=== PATIENT | male | born 1940 | race Caucasian/White ===

== ENCOUNTER 2017-10-18 22:26 | Emergency (ER) | payer OTHER, MEDICAID ==
[2017-10-18 22:36] VITALS: BP 179/81; BMI 26.8
[2017-10-18] MEDS ORDERED: TORADOL 60 MG VIAL IM ONE (23:34)
[2017-10-18] MEDS ORDERED: PHENERGAN INJ 25 MG IM ONE (23:34)
[2017-10-18] MEDS ORDERED: PHENERGAN INJ 25 MG ONE (23:40)
[2017-10-18] MEDS ORDERED: TORADOL 60 MG VIAL ONE (23:40)
--- NOTE | 2017-10-18 23:40 | DR.GENAD ---
HPI - PCP Primary Care Physician: JUSTIN - Complaint/Symptoms Chief Complaint Doctors Comments: Patient is complaining of right CVA pain for the past 3-4 hours getting progressively worst. States the onset of continuous pain in the right side that is steady and will not go away. states he has taken a Locet Plus 10mf 1 1/2 tablets at home without improvement. He denies fever, chills, cold or cough. States he has not been able to urinate since the pain started. States he has Tourettes Syn and cannot urinate on demand like other people. states he is a patient of Dr. Mcdonnell and he took an aspiring at home with his blood pressure and cholesterol pill. States his last bowel movement was today. Chief Complaint:: RT LOWER BACK PAIN Self Treatment fo Chief Complaint: LORCET 15 AND 2 GASX TABLETS AROUND 2129 - Nurses notes reviewed Nurses Notes Review: Yes - Source History Provided: Patient, Family Member - Mode of Arrival Mode of Arrival: Ambulatory - Timing Onset of Chief Complaint: 10/18/17 Came on: Gradually - Duration Duration: Constant How lon Duration: Hours - Location Location: right CVA and back pain - Severity Severity: Severe - Modifying Factors Worsens:: nothing Improves:: nothing PMH - PMH Past Medical History: Yes Past Medical History: Anxiety, GERD, Hypertension, Hyperthyroidism Past Medical History Comment: SENTS Past Surgical History: Yes Surgical History: Angioplasty/Stents Past Surgical History Comment: HERNIA REPAIR - Family History History of Family Medical Conditions: No Family Medical History: Diabetes Mellitus, Cancer, Hypertension - Social History Does patient currently use any type of tobacco product: No Have you used tobacco products in the last 12 months: No Type of Tobacco Use: None Alcohol Use: None Do you use any recreational Drugs:: No Lives With: Family Lives Where: Home - infectious screening In the last 2 months have you had wt loss of >10#?: NO Have you had fever, night sweats or hemotysis?: No Have you traveled outside the country in the last 6 months?: No Isolation: Standard ROS - Review of Systems Constitutional: No Symptoms Reported Eyes: No Symptoms Reported. negative: See HPI, Eye Pain, Blurred Vision, Tearing, Discharge, Photophobia, Diplopia, Other ENTM: No Symptoms Reported Respiratoy: No Symptoms Reported. negative: See HPI, Productive Cough, Non- Productive Cough, Moist Cough, Dry Cough, Hacking Cough, Barking Cough, Brassy Cough, Orthopnea, Short of Breath, Stridor, Wheezing, Hemoptysis, Other Cardiovascular: No Symptoms Reported Gastrointestinal/Abdominal: No Symptoms Reported, Abdominal Pain, Nausea Genitourinary: No Symptoms Reported. negative: See HPI, Discharge, Dysuria, Frequency, Hematuria, Pain, Bleeding, Other Neurological: No Symptoms Reported Musculoskeletal: No Symptoms Reported, Back Pain, Right Integumentary: No Symptoms Reported Hematologic/Lymphatic: No Symptoms Reported. negative: See HPI, Anemia, Blood Clots, Easy Bleeding, Easy Bruising, Swollen Glands, Lymphadenopathy, Other Endocrine: No Symptoms Reported Psychiatric: No Symptoms Reported. negative: See HPI, Anxiety, Depression, Hallucinations, Excessive crying, Suicidal, Other PE - Vital Signs Vitals: Temperature 98.5 F Pulse Rate 73 Respiratory Rate 18 Blood Pressure [Left Arm] 122/66 Blood Pressure [Right Arm] 123/69 Blood Pressure 179/81 O2 Sat by Pulse Oximetry 96 - General Limitations: No Limitations General Appearance: Alert, In Distress (moderate) - Head Head Exam: Normal Inspection, Atraumatic, Normocephalic - Eyes Eye exam: Normal Appearance, PERRL, EOMI. negative: Scleral Icterus, Conjunctival Injection, Nystagmus, Miosis, Mydrasis, Periorbital Swelling, Periorbital Tenderness, Other - ENT ENT Exam: Normal Exam, Normal Oropharynx, Normal External Ear Exam, Mucous Membranes Moist, TM's Normal Bilaterally External Ear Exam: Normal External Inspection TM/Canal Exam: Bilateral Normal Nose Exam: Normal Nose Exam Mouth Exam: Normal Inspection Throat Exam: Normal Inspection - Neck Neck Exam: Normal Inspection, Full ROM, Trachea Midline - Chest Chest Inspection: Normal Inspection, Symmetric Chest Wall Rise - Respiratory Respiratory Exam: Normal Lung Sounds Bilat Respiratory Exam: Bilateral Clear to Auscultation - Cardiovascular Cardiovascular Exam: Regular Rate, Normal Rhythm, Normal Heart Sounds - Abdominal Exam Abdominal Exam: Normal Inspection, Normal Bowel Sounds, Soft, Tenderness (right CVA), Guarding, Hyperactive Bowel Sounds Abdominal Tenderness: RUQ, Moderate - Extremities Extremities Exam: Normal Inspection, Full ROM, Normal Capillary Refill. negative: Tenderness, Edema, Joint Swelling, Calf Tenderness, Other - Back Back Exam: Normal Inspection, Full ROM. negative: Tenderness, (R) CVA Tenderness, (L) CVA Tenderness, Muscle Spasm, Paraspinal Tenderness, Vertebral Tenderness, Rashes, (R) Sciatic Notch Tenderness, (L) Sciatic Notch Tendern, (R ) Straight Leg Raise, (L) Straight Leg Raise, Other - Neurologic Neurological Exam: Alert, Oriented X3, CN II-XII Intact, Normal Gait, Reflexes Normal - Psychiatric Psychiatric Exam: Normal Affect, Normal Mood. negative: Depressed, Agitated, Anxious, Flat Affect, Manic, Homicidal Ideation, Suicidal Ideation, Other - Skin Skin Exam: Warm, Dry, Intact, Normal Color ROR - Labs Reviewed Laboratory Results Reviewed?: Yes (all labs and x-ray results reviewed and discussed with and patient.) Result Diagrams: 10/18/17 23:47 10/18/17 23:47 Laboratory: WBC 11.1 X10^3/uL (3.6-10.0) H 10/18/17 23:47 RBC 5.21 X10^6/uL (4.7-6.0) 10/18/17 23:47 Hgb 15.0 g/dL (13.5-18.0) 10/18/17 23:47 Hct 45.1 % (42.0-54.0) 10/18/17 23:47 MCV 86.5 fL (80.0-100.0) 10/18/17 23:47 MCH 28.8 pg (27.0-34.0) 10/18/17 23:47 MCHC 33.3 g/dL (33.0-35.0) 10/18/17 23:47 RDW 13.6 % (11.6-16.5) 10/18/17 23:47 Plt Count 161 X10^3/uL (150.0-450.0) 10/18/17 23:47 MPV 9.5 fL (7.4-11.0) 10/18/17 23:47 Neut % (Auto) 75.3 % (42.0-75.0) H 10/18/17 23:47 Lymph % (Auto) 12.9 % (21.0-51.0) L 10/18/17 23:47 [place] % (Auto) 7.9 % (0.0-13.0) 10/18/17 23:47 Eos % (Auto) 3.3 % (0.9-2.9) H 10/18/17 23:47 Baso % (Auto) 0.6 % (0.2-1.0) 10/18/17 23:47 Neut # (Auto) 8.4 x10^3/uL (2.2-4.8) H 10/18/17 23:47 Lymph # (Auto) 1.4 X10^3/uL (1.3-2.9) 10/18/17 23:47 [place] # (Auto) 0.9 x10^3/uL (0.3-0.8) H 10/18/17 23:47 Eos # (Auto) 0.4 x10^3/uL (0.0-0.2) H 10/18/17 23:47 Baso # (Auto) 0.1 X10^3/uL (0.0-0.1) 10/18/17 23:47 Absolute Nucleated RBC 0.1 /100WBC 10/18/17 23:47 Sodium 141 mmol/L (136-145) 10/18/17 23:47 Corrected Sodium 142 mmol/L (136-145) 10/18/17 23:47 Potassium 4.2 mmol/L (3.5-5.1) 10/18/17 23:47 Chloride 103 mmol/L (98-107) 10/18/17 23:47 Carbon Dioxide 31.0 mmol/L (21-32) 10/18/17 23:47 BUN 17 mg/dL (7-18) 10/18/17 23:47 Creatinine 1.13 mg/dL (0.70-1.30) 10/18/17 23:47 Est GFR (MDRD) Af Amer > 60 (>60) 10/18/17 23:47 Est GFR (MDRD) Non-Af > 60 (>60) 10/18/17 23:47 Glucose 139 mg/dL (65-99) H 10/18/17 23:47 Calcium 8.6 mg/dL (8.5-10.1) 10/18/17 23:47 Corrected Calcium TNP 10/18/17 23:47 Total Bilirubin 0.60 mg/dL (0.2-1.0) 10/18/17 23:47 AST 22 Units/L (15-37) 10/18/17 23:47 ALT 24 Units/L (12-78) 10/18/17 23:47 Alkaline Phosphatase 92 Units/L (46-116) 10/18/17 23:47 Total Protein 8.1 g/dL (6.4-8.2) 10/18/17 23:47 Albumin 3.8 g/dL (3.4-5.0) 10/18/17 23:47 Globulin 4.3 g/dL (2.5-4.5) 10/18/17 23:47 Albumin/Globulin Ratio 0.9 Ratio (1.1-2.1) L 10/18/17 23:47 Amylase 60 Units/L (25-115) 10/18/17 23:47 Lipase 187 Units/L (73-393) 10/18/17 23:47 - XRAY XRAY Interpreted by: Radiologist (CT abdomen and pelvis: Moderate right sided hydroureteronephrosis secondary to a 4mm stone distal right ureter. diffuse colonic diverticulosis. larger hiatalhernia) - Diagnosis Discharge Problem: Right distal ureteral calculus, Hydroureteronephrosis, Hyperglycemia, Colon, diverticulosis, Left inguinal hernia - Discharge Plan Disposition: HOME, SELF-CARE Condition: Stable Prescriptions: Ciprofloxacin HCl [CIPRO 500 MG TAB *] 500 mg PO Q12H #20 tab Tamsulosin HCl [Flomax] 0.4 mg PO DAILY #14 cap - Follow ups/Referrals Follow ups/Referrals: TIKI MCDONNELL [Primary Care Provider] - 3 days - Instructions Instructions: Inguinal Hernia, Adult, [id number], Renal Colic, [id number], Hyperglycemia, [id number], Diverticulosis
[2017-10-18 23:53] LABS: BASOPHILS # (AUTO) 0.1 X10^3/uL (0.0-0.1); BASOPHILS % (AUTO) 0.6 % (0.2-1.0); EOSINOPHILS # (AUTO) 0.4 x10^3/uL (0.0-0.2); EOSINOPHILS % (AUTO) 3.3 % (0.9-2.9); HEMATOCRIT 45.1 % (42.0-54.0); LYMPHOCYTES # (AUTO) 1.4 X10^3/uL (1.3-2.9); LYMPHOCYTES % (AUTO) 12.9 % (21.0-51.0); MEAN CORPUSCULAR HEMOGLOBIN 28.8 pg (27.0-34.0); MEAN CORPUSCULAR HGB CONC 33.3 g/dL (33.0-35.0); MEAN CORPUSCULAR VOLUME 86.5 fL (80.0-100.0); MEAN PLATELET VOLUME 9.5 fL (7.4-11.0); MONOCYTES # (AUTO) 0.9 x10^3/uL (0.3-0.8); MONOCYTES % (AUTO) 7.9 % (0.0-13.0); NEUTROPHILS # (AUTO) 8.4 x10^3/uL (2.2-4.8); NEUTROPHILS % (AUTO) 75.3 % (42.0-75.0); PLATELET COUNT 161 X10^3/uL (150.0-450.0); RED BLOOD COUNT 5.21 X10^6/uL (4.7-6.0); RED CELL DISTRIBUTION WIDTH 13.6 % (11.6-16.5); WHITE BLOOD COUNT 11.1 X10^3/uL (3.6-10.0)
[2017-10-19 00:21] LABS: ALANINE AMINOTRANSFERASE 24 Units/L (12-78); ALBUMIN 3.8 g/dL (3.4-5.0); ALKALINE PHOSPHATASE 92 Units/L (46-116); AMYLASE 60 Units/L (25-115); ASPARTATE AMINO TRANSFERASE 22 Units/L (15-37); BLOOD UREA NITROGEN 17 mg/dL (7-18); CALCIUM 8.6 mg/dL (8.5-10.1); CHLORIDE 103 mmol/L (98-107); COR NA(FOR HYPERGLY) 142 mmol/L (136-145); CREATININE 1.13 mg/dL (0.70-1.30); LIPASE 187 Units/L (73-393); SODIUM 141 mmol/L (136-145); TOTAL PROTEIN 8.1 g/dL (6.4-8.2); eGFR BLACK RACES > 60 (>60); eGFR NON BLACK RACES > 60 (>60)
--- NOTE | 2017-10-19 00:30 | CT ---
CT abdomen and pelvis without contrast Indication: Sudden onset back pain without trauma Technique: Helical CT images of the abdomen and pelvis were obtained without IV contrast. Reformatted images in the coronal and sagittal planes were also generated for review. Comparison: None Findings: Imaged lung bases demonstrate a large sliding hiatal hernia, only partially visualized but consisting of the majority of the stomach. There is mild associated compressive atelectasis of the ri ght lower lobe. The left lung base is clear. No aggressive osseous lesions are identified. Within the limits of a noncontrast exam, the unenhanced liver, gallbladder, spleen, pancreas, adrenal s and left kidney/ureter are normal. There is moderate right-sided hydroureteronephrosis, secondary t o a 4 mm stone within the distal right ureter. There is moderate right perinephric stranding as well as small fluid about the right kidney. No additional radiopaque urinary tract stones are identified a nd there is no left-sided hydroureteronephrosis. There is diffuse colonic diverticulosis without CT evidence for acute diverticulitis. There is no bow el inflammation or obstruction. The appendix is normal. The aortoiliac system is moderately calcified without aneurysm. The urinary bladder is normal without stones. The prostate is normal in size and c entrally calcified. Small left greater than right fat containing inguinal hernias noted. No free air, significant free flowing ascites or bulky lymphadenopathy identified. Impression: Moderate right-sided hydroureteronephrosis secondary to a 4 mm stone within distal right ureter. Large hiatal hernia, diffuse colonic diverticulosis and additional incidental findings, as above. Reported By:
[2017-10-19] MEDS ORDERED: FLOMAX PO STA (00:50)
[2017-10-19] MEDS ORDERED: LEVAQUIN TAB 500 MG PO STA (00:50)
[2017-10-19] MEDS ORDERED: LEVAQUIN TAB 500 MG ONE (00:54)
== END 2017-10-19 01:07 | disposition home or self-care (01) ==
LOC: ER 22:26
DX: N20.1 Calculus of ureter (principal); N13.30 Unspecified hydronephrosis; R73.9 Hyperglycemia, unspecified; K57.30 Diverticulosis of large intestine without perforation or abscess without bleeding; K40.90 Unilateral inguinal hernia, without obstruction or gangrene, not specified as recurrent
CPT/HCPCS: 36415; 74176; 80053; 82150; 83690; 85025; 96372; 99282; 99283; J1885; J2550

== ENCOUNTER 2020-05-24 19:00 | Observation (INO) ==
--- NOTE | 2020-05-24 19:41 | DR.EXTPAIN ---
HPI Time seen Time Seen by Provider: 05/24/20 19:40 PCP Primary Care Physician: JUSTYN Complaint/Symptoms Chief Complaint:: PTS STATES THAT SINCE LAST NIGHT PT HAS BEEN NAUSEATED "DRY HEAVING" AND HAVING DIARRHEA AND FEELING WEAK. Self Treatment fo Chief Complaint: IMMODIUM AD AT APPROX 1400 TODAY COVID-19 Coronavirus risk:travel/contact w/high risk person: No Has patient experienced Coronavirus symptoms: No Source History Provided: Patient and Significant Other Mode of arrival Mode of Arrival: Ambulatory Timing Onset of Chief Complaint: 05/23/20 PMH PMH Past Medical History: Yes Past Medical History: Anxiety, Dementia, Dyslipidemia, GERD and Hyperthyroidism Past Medical History Comment: WENDY Past Surgical History: Yes Surgical History: Angioplasty/Stents and Other Past Surgical History Comment: HIATAL HERNIA REPAIR Family History History of Family Medical Conditions: Yes Family Medical History: Diabetes Mellitus, Cancer and Hypertension Social History Does patient currently use any type of tobacco product: Yes (CHEWING TOBACCO) Have you used tobacco products in the last 12 months: Yes Type of Tobacco Use: Smokeless Does any household member use tobacco: Yes Alcohol Use: None Do you use any recreational Drugs:: No Lives With: Spouse Lives Where: Home Travel Risk Coronavirus risk:travel/contact w/high risk person: No Has patient experienced Coronavirus symptoms: No Infectious screening In the last 2 months have you had wt loss of >10#?: NO Have you had fever, night sweats or hemotysis?: No Have you traveled outside the country in the last 6 months?: No Isolation: Standard ROS Review of Systems Constitutional: No Symptoms Reported and See HPI Eyes: No Symptoms Reported and See HPI ENTM: No Symptoms Reported Respiratoy: No Symptoms Reported, See HPI and Hemoptysis Cardiovascular: No Symptoms Reported Gastrointestinal/Abdominal: No Symptoms Reported and See HPI Genitourinary: No Symptoms Reported and See HPI Neurological: No Symptoms Reported and See HPI Musculoskeletal: No Symptoms Reported and See HPI Integumentary: No Symptoms Reported and See HPI Hematologic/Lymphatic: No Symptoms Reported and See HPI Endocrine: No Symptoms Reported and See HPI Psychiatric: No Symptoms Reported and See HPI All Other Systems: Reviewed and Negative Unable to Obtain Due To: Dementia PE Vital Signs Vitals: Temperature 98.1 F Pulse Rate 78 Respiratory Rate 18 Blood Pressure [Left Arm] 122/66 Blood Pressure [Right Arm] 123/69 Blood Pressure 176/82 O2 Sat by Pulse Oximetry 98 ROR Labs Reviewed Result Diagrams: 05/26/20 06:00 05/26/20 06:00 Laboratory: WBC 7.5 X10^3/uL (3.6-10.0) 05/24/20 19:53 RBC 5.01 X10^6/uL (4.7-6.0) 05/24/20 19:53 Hgb 15.3 g/dL (13.5-18.0) 05/24/20 19:53 Hct 45.9 % (42.0-54.0) 05/24/20 19:53 MCV 91.6 fL (80.0-100.0) 05/24/20 19:53 MCH 30.5 pg (27.0-34.0) 05/24/20 19:53 MCHC 33.2 g/dL (33.0-35.0) 05/24/20 19:53 RDW 14.4 % (11.6-16.5) 05/24/20 19:53 Plt Count 165 X10^3/uL (150.0-450.0) 05/24/20 19:53 MPV 9.3 fL (7.4-11.0) 05/24/20 19:53 Neut % (Auto) 79.3 % (42.0-75.0) H 05/24/20 19:53 Lymph % (Auto) 12.2 % (21.0-51.0) L 05/24/20 19:53 [place] % (Auto) 7.2 % (0.0-13.0) 05/24/20 19:53 Eos % (Auto) 0.8 % (0.9-2.9) L 05/24/20 19:53 Baso % (Auto) 0.5 % (0.2-1.0) 05/24/20 19:53 Neut # (Auto) 6.0 x10^3/uL (2.2-4.8) H 05/24/20 19:53 Lymph # (Auto) 0.9 X10^3/uL (1.3-2.9) L 05/24/20 19:53 [place] # (Auto) 0.5 x10^3/uL (0.3-0.8) 05/24/20 19:53 Eos # (Auto) 0.1 x10^3/uL (0.0-0.2) 05/24/20 19:53 Baso # (Auto) 0.0 X10^3/uL (0.0-0.1) 05/24/20 19:53 Absolute Nucleated RBC 0.1 /100WBC 05/24/20 19:53 Sodium 145 mmol/L (136-145) 05/24/20 19:53 Corrected Sodium 145 mmol/L (136-145) 05/24/20 19:53 Potassium 4.0 mmol/L (3.5-5.1) 05/24/20 19:53 Chloride 108 mmol/L (98-107) H 05/24/20 19:53 Carbon Dioxide 27.4 mmol/L (21-32) 05/24/20 19:53 BUN 14 mg/dL (7-18) 05/24/20 19:53 Creatinine 0.98 mg/dL (0.70-1.30) 05/24/20 19:53 Est GFR (MDRD) Af Amer > 60 (>60) 05/24/20 19:53 Est GFR (MDRD) Non-Af > 60 (>60) 05/24/20 19:53 Glucose 118 mg/dL (65-99) H 05/24/20 19:53 Calcium 9.4 mg/dL (8.5-10.1) 05/24/20 19:53 Corrected Calcium TNP 05/24/20 19:53 Total Bilirubin 0.90 mg/dL (0.2-1.0) 05/24/20 19:53 AST 22 Units/L (15-37) 05/24/20 19:53 ALT 26 Units/L (12-78) 05/24/20 19:53 Alkaline Phosphatase 82 Units/L (46-116) 05/24/20 19:53 Total Protein 8.1 g/dL (6.4-8.2) 05/24/20 19:53 Albumin 4.1 g/dL (3.4-5.0) 05/24/20 19:53 Globulin 4.0 g/dL (2.5-4.5) 05/24/20 19:53 Albumin/Globulin Ratio 1.0 Ratio (1.1-2.1) L 05/24/20 19:53 Amylase 72 Units/L (25-115) 05/24/20 19:53 Lipase 159 Units/L (73-393) 05/24/20 19:53 SARS-CoV-2 (PCR) Negative (NEGATIVE) 05/24/20 22:05 Opioid Opioid Risk Tool Age (Benjy box if 16-45): No History of Preadolescent Sexual Abuse: No Total: 0 Total Score Risk Category: Low Risk Copyright: [employer] predicting aberrant behaviors Diagnosis Discharge Problem: Acute dehydration, Enteritis, Bronchitis, Weakness generalized Diarrhea Qualifiers: Diarrhea type: infectious Qualified Code(s): A09 - Infectious gastroenteritis and colitis, unspecified Instructions Instructions: Fall Prevention in the Home, Adult, [id number] Diarrhea, Adult Hypertension, [id number] Rehydration, Elderly Dehydration, Elderly, [id number] Forms: Precautions for COVID19 Patient Portal Social Distancing
[2020-05-24] MEDS ORDERED: NS 1000 ML 1,000 ML IV ONE (20:07)
[2020-05-24] MEDS ORDERED: ZOFRAN INJ 4 MG VIAL IVP ONE (20:07)
[2020-05-24 20:10] LABS: BASOPHILS % (AUTO) 0.5 % (0.2-1.0); EOSINOPHILS # (AUTO) 0.1 x10^3/uL (0.0-0.2); EOSINOPHILS % (AUTO) 0.8 % (0.9-2.9); HEMATOCRIT 45.9 % (42.0-54.0); HEMOGLOBIN 15.3 g/dL (13.5-18.0); LYMPHOCYTES # (AUTO) 0.9 X10^3/uL (1.3-2.9); LYMPHOCYTES % (AUTO) 12.2 % (21.0-51.0); MEAN CORPUSCULAR HEMOGLOBIN 30.5 pg (27.0-34.0); MEAN CORPUSCULAR HGB CONC 33.2 g/dL (33.0-35.0); MEAN CORPUSCULAR VOLUME 91.6 fL (80.0-100.0); MEAN PLATELET VOLUME 9.3 fL (7.4-11.0); MONOCYTES # (AUTO) 0.5 x10^3/uL (0.3-0.8); MONOCYTES % (AUTO) 7.2 % (0.0-13.0); NEUTROPHILS % (AUTO) 79.3 % (42.0-75.0); PLATELET COUNT 165 X10^3/uL (150.0-450.0); RED BLOOD COUNT 5.01 X10^6/uL (4.7-6.0); RED CELL DISTRIBUTION WIDTH 14.4 % (11.6-16.5); WHITE BLOOD COUNT 7.5 X10^3/uL (3.6-10.0)
[2020-05-24 20:18] LABS: ALANINE AMINOTRANSFERASE 26 Units/L (12-78); ALBUMIN 4.1 g/dL (3.4-5.0); ALKALINE PHOSPHATASE 82 Units/L (46-116); AMYLASE 72 Units/L (25-115); ASPARTATE AMINO TRANSFERASE 22 Units/L (15-37); BLOOD UREA NITROGEN 14 mg/dL (7-18); CALCIUM 9.4 mg/dL (8.5-10.1); CARBON DIOXIDE 27.4 mmol/L (21-32); CHLORIDE 108 mmol/L (98-107); COR NA(FOR HYPERGLY) 145 mmol/L (136-145); CREATININE 0.98 mg/dL (0.70-1.30); LIPASE 159 Units/L (73-393); SODIUM 145 mmol/L (136-145); TOTAL PROTEIN 8.1 g/dL (6.4-8.2); eGFR NON BLACK RACES > 60 (>60)
[2020-05-24] MEDS ORDERED: NS 1000 ML 1,000 ML ONE ×2 (20:36→23:08)
[2020-05-24] MEDS ORDERED: ZOFRAN INJ 4 MG VIAL ONE (20:36)
--- NOTE | 2020-05-24 22:45 | CT ---
EXAM: CT ABDOMEN AND PELVIS WITHOUT INTRAVENOUS CONTRASTHISTORY: Pain.TECHNIQUE: Spiral axial CT images are obtained through the abdomen and pelvis without the administration of intravenous contrast. Additional coronal and sagittal reformatted images are reconstructed.DOSIMETRY: Total DLP 404.2 mGycm; CTDI 9.1 mGyCOMPARISON: None available.FINDINGS:GASTROINTESTINAL TRACT: There is an approximately 6.3 cm cc by 4.8 cm AP by 4.8 cm transverse retrocardiac hiatal hernia. Nonspecific, fluid-filled, nondilated small and right-sided large bowel loops within the abdomen and pelvis; cannot rule out enteritis with impending diarrhea. Clinical correlation is advised. There is severe diffuse colonic diverticulosis, especially severe in the sigmoid region, without CT evidence for acute diverticulitis. No evidence for bowel herniation, bowel obstruction, or colitis. A normal-appearing appendix is seen.GENITOURINARY SYSTEM: There are approximately 1.8 cm and 1.4 cm right middle to lower pole renal cysts. The kidneys are otherwise unremarkable. There is no ureteral calculus or stigmata of obstructive uropathy. The urinary bladder, seminal vesicles, prostate gland appear grossly unremarkable for a non-dedicated exam.CT ABDOMEN: Severe aortoiliac atherosclerotic disease, without aneurysm formation.The liver, spleen, pancreas, adrenal glands, gallbladder, and inferior vena cava are within normal limits for a noncontrast CT scan. There is no intra-abdominal or retroperitoneal lymphadenopathy, free fluid, or free air seen. No abdominal herniation is noted.CT PELVIS: There is severe multilevel DDD throughout the distal thoracic and lumbar spine. The visualized bony structures are otherwise within normal limits. No pelvic sidewall or inguinal lymphadenopathy is seen. No inguinal herniation is noted. No free fluid or free air is seen.LUNG BASES: The lung bases are clear.IMPRESSION:1. Approximately 6.3 cm cc by 4.8 cm AP by 4.8 cm transverse retrocardiac hiatal hernia.2. Nonspecific, fluid-filled, nondilated small and right-sided large bowel loops within the abdomen and pelvis; cannot rule out enteritis with impending diarrhea. Clinical correlation is advised.3. Severe diffuse colonic diverticulosis, especially severe in the sigmoid region, without CT evidence for acute diverticulitis. No evidence for bowel herniation, bowel obstruction, or colitis.4. No evidence for acute appendicitis, bowel herniation/obstruction, or colitis seen.5. No free fluid, free air, mass lesions, or lymphadenopathy seen.6. No evidence for renal stone disease or obstructive uropathy.Electronically signed by: He Cueto (May 24, 2020 22:43:34)
[2020-05-24] MEDS: NS 1000 ML 1,000 ML IV SCH (23:13)
[2020-05-25] MEDS ORDERED: NORCO 10/325 TAB PO PRN (01:18)
[2020-05-25] MEDS ORDERED: PEPCID 20 MG IV PREMIX* 20 MG/50 ML BAG IV PRN (01:18)
[2020-05-25 01:55] LABS: BILIRUBIN,URINE NEGATIVE (NEGATIVE); BLOOD/HEMOGLOBIN,URINE NEGATIVE (NEGATIVE); GLUCOSE, URINE NEGATIVE (NEGATIVE); KETONES,URINE 2+ (NEGATIVE); LEUKOCYTE ESTERASE ,URINE NEGATIVE (NEGATIVE); NITRITES,URINE NEGATIVE (NEGATIVE); PROTEIN,URINE 1+ (NEGATIVE); UROBILINOGEN,URINE NORMAL (NORMAL)
[2020-05-25 02:16] LABS: APPEARANCE,URINE CLEAR (CLEAR); COLOR,URINE YELLOW (YELLOW)
[2020-05-25 02:17] LABS: BACTERIA,URINE TRACE /HPF (NEGATIVE); RBC,URINE NONE SEEN /HPF (0-3); SQUAMOUS EPITHELIAL CELL,UR RARE /HPF (NEGATIVE)
[2020-05-25 03:04] VITALS: BMI 20.3
[2020-05-25] MEDS: VALIUM PO SCH ×3 (05:25→21:26)
[2020-05-25 06:08] LABS: BASOPHILS % (AUTO) 0.4 % (0.2-1.0); EOSINOPHILS # (AUTO) 0.1 x10^3/uL (0.0-0.2); EOSINOPHILS % (AUTO) 0.9 % (0.9-2.9); HEMATOCRIT 39.4 % (42.0-54.0); HEMOGLOBIN 13.2 g/dL (13.5-18.0); LYMPHOCYTES # (AUTO) 1.5 X10^3/uL (1.3-2.9); LYMPHOCYTES % (AUTO) 18.2 % (21.0-51.0); MEAN CORPUSCULAR HEMOGLOBIN 30.3 pg (27.0-34.0); MEAN CORPUSCULAR HGB CONC 33.4 g/dL (33.0-35.0); MEAN CORPUSCULAR VOLUME 90.6 fL (80.0-100.0); MEAN PLATELET VOLUME 9.1 fL (7.4-11.0); MONOCYTES # (AUTO) 0.7 x10^3/uL (0.3-0.8); MONOCYTES % (AUTO) 8.6 % (0.0-13.0); NEUTROPHILS # (AUTO) 5.7 x10^3/uL (2.2-4.8); NEUTROPHILS % (AUTO) 71.9 % (42.0-75.0); PLATELET COUNT 166 X10^3/uL (150.0-450.0); RED BLOOD COUNT 4.34 X10^6/uL (4.7-6.0); RED CELL DISTRIBUTION WIDTH 14.8 % (11.6-16.5)
[2020-05-25 06:19] LABS: ALANINE AMINOTRANSFERASE 20 Units/L (12-78); ALBUMIN 3.2 g/dL (3.4-5.0); ALKALINE PHOSPHATASE 62 Units/L (46-116); AMYLASE 48 Units/L (25-115); ASPARTATE AMINO TRANSFERASE 19 Units/L (15-37); BLOOD UREA NITROGEN 12 mg/dL (7-18); CALCIUM 8.8 mg/dL (8.5-10.1); CARBON DIOXIDE 27.1 mmol/L (21-32); CHLORIDE 110 mmol/L (98-107); COR CA(FOR HYPOALB) 9.4 mg/dL (8.5-10.1); CREATININE 0.83 mg/dL (0.70-1.30); LIPASE 118 Units/L (73-393); SODIUM 143 mmol/L (136-145); TOTAL PROTEIN 6.5 g/dL (6.4-8.2); eGFR NON BLACK RACES > 60 (>60)
[2020-05-25] MEDS: ASPIRIN PO SCH (08:39)
[2020-05-25] MEDS: ARICEPT TAB 10 MG PO SCH (08:39)
[2020-05-25] MEDS: COREG TAB 6.25 MG PO SCH ×2 (08:39→20:38)
[2020-05-25] MEDS: PriLOSEC PO SCH (08:40)
[2020-05-25] MEDS: MEGACE PO SCH ×2 (08:40→20:38)
[2020-05-25] MEDS: SYNTHROID 75 mcg TAB PO SCH (08:40)
[2020-05-25] MEDS: CIPRO IV 400 MG PREMIX* 400 MG/200 ML IV.SOLN. IV SCH ×2 (09:47→20:38)
[2020-05-25] MEDS: NS 1000 ML 1,000 ML IV SCH ×3 (09:48→23:30)
[2020-05-25] MEDS: FLAGYL TAB 500 MG PO SCH ×3 (09:48→21:26)
--- NOTE | 2020-05-25 10:33 | DR.H&P ---
H&P History & Physical for Day of: H&P Date: 05/25/20 Chief Complaint Chief Complaint: weakness, diarrhea Allergies Allergies Allergy/AdvReac Type Severity Reaction Status Date / Time No Known Drug Allergies Allergy Verified 05/24/20 19:14 History of Present Illness History of Present Illness: Mr. Edmonds is a 80 y/o male with a PMH of CAD s/p PCI, Dementia, HTN, HLD presented with 3-4 days of diarrhea, weakness and decreased appetite. states since patient had hiatal hernia surgery in Jul in [place], he had had nausea and poor appetite. He reports mild abdominal cramps. Denies fever or chills. He does have nausea and dry heaves. Denies any blood in stool. He having BM right after he eats. He was in [place] couple days ago but reports being sick prior to the trip. No known sick exposure, no sick contact at home. Denies diarrhea being related to anything he ate. ED work-up - Patient appeared to be dehydrated, was given NS and started on maintenance fluids - CTAP: possible concern for enteritis, diverticulosis noted - Labs: normal renal function, UA (-) COVID (-) Plan: continue IV hydration, no diarrhea overnight. Patient has not eaten anything since he was admitted. Will start full liquid diet and advance as tolerated. Stool studies ordered. Will start Cipro and Flagyl for possible enteritis. Resume home medications. Check Mag, monitor AM labs. Past Medical History Past Medical History: Anxiety, Dementia, Dyslipidemia, GERD and Hypothyroidism Additional Medical History: Emphysema, Tourettes Syndrome Past Surgical History Surgical History: Angioplasty/Stents and Other Additional Surgical History: Hernia Repair Family History Family Medical History: Diabetes Mellitus, Cancer and Hypertension Social History Does patient currently use any type of tobacco product: Yes Have you used tobacco products in the last 12 months: Yes Type of Tobacco Use: CHEW Does any household member use tobacco: Yes Alcohol Use: None Drug Use: None Prescription drug monitoring program results: PDMP reviewed and no concerns identified Medications Home Medications: No Known Drug Allergies Allergy (Verified 05/24/20 19:14) CONTINUE taking the following medications docusate sodium [Colace Clear] 50 mg PO BID PRN 05/24/20 [History] donepezil 10 mg PO DAILY 05/24/20 [History] megestrol 40 mg PO BID 05/24/20 [History] Labs Result Diagrams: 05/25/20 05:40 05/25/20 05:40 Labs: Laboratory WBC 8.0 X10^3/uL (3.6-10.0) 05/25/20 05:40 RBC 4.34 X10^6/uL (4.7-6.0) L 05/25/20 05:40 Hgb 13.2 g/dL (13.5-18.0) L D 05/25/20 05:40 Hct 39.4 % (42.0-54.0) L 05/25/20 05:40 MCV 90.6 fL (80.0-100.0) 05/25/20 05:40 MCH 30.3 pg (27.0-34.0) 05/25/20 05:40 MCHC 33.4 g/dL (33.0-35.0) 05/25/20 05:40 RDW 14.8 % (11.6-16.5) 05/25/20 05:40 Plt Count 166 X10^3/uL (150.0-450.0) 05/25/20 05:40 MPV 9.1 fL (7.4-11.0) 05/25/20 05:40 Neut % (Auto) 71.9 % (42.0-75.0) 05/25/20 05:40 Lymph % (Auto) 18.2 % (21.0-51.0) L 05/25/20 05:40 [place] % (Auto) 8.6 % (0.0-13.0) 05/25/20 05:40 Eos % (Auto) 0.9 % (0.9-2.9) 05/25/20 05:40 Baso % (Auto) 0.4 % (0.2-1.0) 05/25/20 05:40 Neut # (Auto) 5.7 x10^3/uL (2.2-4.8) H 05/25/20 05:40 Lymph # (Auto) 1.5 X10^3/uL (1.3-2.9) 05/25/20 05:40 [place] # (Auto) 0.7 x10^3/uL (0.3-0.8) 05/25/20 05:40 Eos # (Auto) 0.1 x10^3/uL (0.0-0.2) 05/25/20 05:40 Baso # (Auto) 0.0 X10^3/uL (0.0-0.1) 05/25/20 05:40 Absolute Nucleated RBC 0.0 /100WBC 05/25/20 05:40 Sodium 143 mmol/L (136-145) 05/25/20 05:40 Corrected Sodium TNP 05/25/20 05:40 Potassium 4.2 mmol/L (3.5-5.1) 05/25/20 05:40 Chloride 110 mmol/L (98-107) H 05/25/20 05:40 Carbon Dioxide 27.1 mmol/L (21-32) 05/25/20 05:40 BUN 12 mg/dL (7-18) 05/25/20 05:40 Creatinine 0.83 mg/dL (0.70-1.30) 05/25/20 05:40 Est GFR (MDRD) Af Amer > 60 (>60) 05/25/20 05:40 Est GFR (MDRD) Non-Af > 60 (>60) 05/25/20 05:40 Glucose 99 mg/dL (65-99) 05/25/20 05:40 Calcium 8.8 mg/dL (8.5-10.1) 05/25/20 05:40 Corrected Calcium 9.4 mg/dL (8.5-10.1) 05/25/20 05:40 Magnesium 2.0 mg/dL (1.7-2.9) 05/25/20 05:40 Total Bilirubin 0.70 mg/dL (0.2-1.0) 05/25/20 05:40 AST 19 Units/L (15-37) 05/25/20 05:40 ALT 20 Units/L (12-78) 05/25/20 05:40 Alkaline Phosphatase 62 Units/L (46-116) 05/25/20 05:40 Total Protein 6.5 g/dL (6.4-8.2) 05/25/20 05:40 Albumin 3.2 g/dL (3.4-5.0) L 05/25/20 05:40 Globulin 3.3 g/dL (2.5-4.5) 05/25/20 05:40 Albumin/Globulin Ratio 1.0 Ratio (1.1-2.1) L 05/25/20 05:40 Amylase 48 Units/L (25-115) 05/25/20 05:40 Lipase 118 Units/L (73-393) 05/25/20 05:40 Specimen Type Clean catch urine 05/25/20 01:40 Urine Color Yellow (YELLOW) 05/25/20 01:40 Urine Appearance Clear (CLEAR) 05/25/20 01:40 Urine pH 5.0 (5.0 - 8.0) 05/25/20 01:40 Ur Specific [place] 1.030 (1.000-1.030) 05/25/20 01:40 Urine Protein 1+ (NEGATIVE) 05/25/20 01:40 Urine Glucose (UA) Negative (NEGATIVE) 05/25/20 01:40 Urine Ketones 2+ (NEGATIVE) 05/25/20 01:40 Urine Occult Blood Negative (NEGATIVE) 05/25/20 01:40 Urine Nitrite Negative (NEGATIVE) 05/25/20 01:40 Urine Bilirubin Negative (NEGATIVE) 05/25/20 01:40 Urine Urobilinogen Normal (NORMAL) 05/25/20 01:40 Ur Leukocyte Esterase Negative (NEGATIVE) 05/25/20 01:40 Urine RBC None seen /HPF (0-3) 05/25/20 01:40 Urine WBC None seen /HPF (0-5) 05/25/20 01:40 Ur Squamous Epith Cells Rare /HPF (NEGATIVE) 05/25/20 01:40 Urine Bacteria Trace /HPF (NEGATIVE) 05/25/20 01:40 Ur Culture Indicated? No/not indicated 05/25/20 01:40 SARS-CoV-2 (PCR) Negative (NEGATIVE) 05/24/20 22:05 Review of Systems Constitutional: Chills, Weakness and Malaise Eyes: No Symptoms Reported ENT: No Symptoms Reported Respiratory: No Symptoms Reported Cardiovascular: No Symptoms Reported Gastrointestinal: Nausea, Vomiting, Abdominal Pain and Diarrhea Genitourinary: No Symptoms Reported Musculoskeletal: No Symptoms Reported Skin: No Symptoms Reported Neurological: No Symptoms Reported Physical Exam Vital Signs: Temperature 98.6 F Pulse Rate [Left] 76 Pulse Rate 55 Respiratory Rate 18 Blood Pressure [Left Arm] 126/59 Blood Pressure [Right Arm] 131/73 Blood Pressure 163/78 O2 Sat by Pulse Oximetry 94 Oriented: Normal Eyes: Normal Ear: Normal Nose: Normal Throat: Normal Respiratory: Clear Throughout Cardiovascular: Normal Auscultation: Bowel Sounds: Normal Palpation: Normal Tenderness: RLQ, LLQ and Mild Skin: Decreased Turgur Musculoskeletal: Normal Psychiatric: Normal Mood Description: Calm Affect: Normal Speech Pattern: Clear and Appropriate Assessment/Plan (1) Enteritis: Status: Acute (2) Diarrhea: Qualifiers: Diarrhea type: infectious Qualified Code(s): A09 - Infectious gastroenteritis and colitis, unspecified Status: Acute (3) Acute dehydration: Status: Acute (4) Weakness generalized: Status: Acute (5) Colon, diverticulosis: Status: Acute (6) CAD (coronary artery disease): Status: Acute (7) HTN (hypertension): Status: Acute (8) Hypothyroidism: Status: Acute (9) Dementia: Status: Acute (10) Anxiety: Status: Acute (11) Chronic, continuous use of opioids: Status: Acute Review H&P Reviewed: Yes Patient was examined?: Yes
[2020-05-25] MEDS: LOVENOX INJ 40 MG SYR SC SCH (10:56)
[2020-05-25] MEDS ORDERED: ZOCOR TAB 20 MG PO SCH (21:00)
[2020-05-26] MEDS: ZOFRAN INJ 4 MG VIAL IVP PRN ×2 (01:53→10:03)
[2020-05-26] MEDS: FLAGYL TAB 500 MG PO SCH (05:08)
[2020-05-26] MEDS: VALIUM PO SCH (05:10)
[2020-05-26] MEDS: NS 1000 ML 1,000 ML IV SCH ×2 (05:51→08:38)
[2020-05-26 06:24] LABS: BASOPHILS % (AUTO) 0.4 % (0.2-1.0); EOSINOPHILS # (AUTO) 0.2 x10^3/uL (0.0-0.2); EOSINOPHILS % (AUTO) 2.6 % (0.9-2.9); HEMATOCRIT 36.9 % (42.0-54.0); HEMOGLOBIN 12.4 g/dL (13.5-18.0); LYMPHOCYTES # (AUTO) 1.3 X10^3/uL (1.3-2.9); MEAN CORPUSCULAR HEMOGLOBIN 30.5 pg (27.0-34.0); MEAN CORPUSCULAR HGB CONC 33.6 g/dL (33.0-35.0); MEAN CORPUSCULAR VOLUME 90.8 fL (80.0-100.0); MEAN PLATELET VOLUME 9.1 fL (7.4-11.0); MONOCYTES # (AUTO) 0.6 x10^3/uL (0.3-0.8); MONOCYTES % (AUTO) 8.3 % (0.0-13.0); NEUTROPHILS # (AUTO) 4.6 x10^3/uL (2.2-4.8); NEUTROPHILS % (AUTO) 68.7 % (42.0-75.0); PLATELET COUNT 142 X10^3/uL (150.0-450.0); RED BLOOD COUNT 4.06 X10^6/uL (4.7-6.0); RED CELL DISTRIBUTION WIDTH 14.2 % (11.6-16.5); WHITE BLOOD COUNT 6.7 X10^3/uL (3.6-10.0)
[2020-05-26 06:35] LABS: ALANINE AMINOTRANSFERASE 17 Units/L (12-78); ALKALINE PHOSPHATASE 54 Units/L (46-116); ASPARTATE AMINO TRANSFERASE 15 Units/L (15-37); BLOOD UREA NITROGEN 8 mg/dL (7-18); CALCIUM 8.3 mg/dL (8.5-10.1); CARBON DIOXIDE 27.2 mmol/L (21-32); CHLORIDE 107 mmol/L (98-107); COR CA(FOR HYPOALB) 9.1 mg/dL (8.5-10.1); CREATININE 0.71 mg/dL (0.70-1.30); SODIUM 140 mmol/L (136-145); eGFR NON BLACK RACES > 60 (>60)
[2020-05-26] MEDS: LOVENOX INJ 40 MG SYR SC SCH (08:39)
[2020-05-26] MEDS: ARICEPT TAB 10 MG PO SCH (08:39)
[2020-05-26] MEDS: CIPRO IV 400 MG PREMIX* 400 MG/200 ML IV.SOLN. IV SCH (08:39)
[2020-05-26] MEDS: COREG TAB 6.25 MG PO SCH (08:39)
[2020-05-26] MEDS: ASPIRIN PO SCH (08:39)
[2020-05-26] MEDS: PriLOSEC PO SCH (08:40)
[2020-05-26] MEDS: MEGACE PO SCH (08:40)
[2020-05-26] MEDS: SYNTHROID 75 mcg TAB PO SCH (08:40)
[2020-05-26 09:45] VITALS: BP 147/81
--- NOTE | 2020-05-26 09:54 | W.DIS.FURT ---
Summary of Discharge Admission Diagnosis Patient Problems (Updated 05/25/20 @ 10:50 by Blanche Benavidez) Acute dehydration (Acute) E86.0 Enteritis (Acute) K52.9 Bronchitis (Acute) J40 Diarrhea (Acute) R19.7 Weakness generalized (Acute) R53.1 Vital Signs: Vital Signs (72 hours) 05/24/20 19:03 05/24/20 20:47 05/24/20 21:00 Temperature 98.1 F Pulse Rate 88 86 65 Pulse Rate [Left] Respiratory Rate 18 Blood Pressure 163/84 184/75 Blood Pressure [Left Arm] Blood Pressure [Right Arm] O2 Sat by Pulse Oximetry 98 98 99 05/24/20 21:25 05/24/20 21:30 05/24/20 21:31 Temperature Pulse Rate 88 82 Pulse Rate [Left] Respiratory Rate Blood Pressure 184/83 Blood Pressure [Left Arm] Blood Pressure [Right Arm] O2 Sat by Pulse Oximetry 99 98 05/24/20 21:45 05/24/20 22:00 05/24/20 22:01 Temperature Pulse Rate 82 64 72 Pulse Rate [Left] Respiratory Rate Blood Pressure 182/85 Blood Pressure [Left Arm] Blood Pressure [Right Arm] O2 Sat by Pulse Oximetry 99 100 100 05/24/20 22:15 05/24/20 22:30 05/24/20 22:31 Temperature Pulse Rate 66 73 64 Pulse Rate [Left] Respiratory Rate Blood Pressure 159/72 Blood Pressure [Left Arm] Blood Pressure [Right Arm] O2 Sat by Pulse Oximetry 98 86 L 91 L 05/24/20 22:45 05/24/20 23:00 05/24/20 23:15 Temperature Pulse Rate 80 69 78 Pulse Rate [Left] Respiratory Rate Blood Pressure 176/82 Blood Pressure [Left Arm] Blood Pressure [Right Arm] O2 Sat by Pulse Oximetry 98 98 98 05/24/20 23:30 05/24/20 23:31 05/24/20 23:45 Temperature Pulse Rate 82 75 78 Pulse Rate [Left] Respiratory Rate Blood Pressure 177/83 Blood Pressure [Left Arm] Blood Pressure [Right Arm] O2 Sat by Pulse Oximetry 98 98 99 05/25/20 00:00 05/25/20 00:16 05/25/20 00:40 Temperature 98.8 F 98.8 F Pulse Rate 55 L Pulse Rate [Left] 66 Respiratory Rate 18 18 Blood Pressure 163/78 Blood Pressure [Left Arm] 126/59 Blood Pressure [Right Arm] O2 Sat by Pulse Oximetry 99 97 05/25/20 01:30 05/25/20 04:00 05/25/20 08:00 Temperature 98.6 F 99.6 F 98.6 F Pulse Rate Pulse Rate [Left] 84 86 76 Respiratory Rate 20 18 18 Blood Pressure Blood Pressure [Left Arm] Blood Pressure [Right Arm] 128/73 151/70 131/73 O2 Sat by Pulse Oximetry 98 99 94 L 05/25/20 12:00 05/25/20 16:00 05/25/20 20:00 Temperature 98.9 F 98.7 F 97.9 F Pulse Rate Pulse Rate [Left] 81 69 87 Respiratory Rate 18 18 16 Blood Pressure Blood Pressure [Left Arm] Blood Pressure [Right Arm] 140/72 134/69 151/72 O2 Sat by Pulse Oximetry 94 L 96 98 05/25/20 20:39 05/25/20 21:39 05/26/20 00:00 Temperature 99.5 F Pulse Rate Pulse Rate [Left] 62 Respiratory Rate 18 18 18 Blood Pressure Blood Pressure [Left Arm] Blood Pressure [Right Arm] 129/63 O2 Sat by Pulse Oximetry 97 05/26/20 04:00 05/26/20 08:00 Temperature 98.9 F 99.7 F H Pulse Rate Pulse Rate [Left] 63 64 Respiratory Rate 20 18 Blood Pressure Blood Pressure [Left Arm] 147/81 Blood Pressure [Right Arm] 135/67 O2 Sat by Pulse Oximetry 97 95 Labs: Laboratory Last Values WBC 6.7 X10^3/uL (3.6-10.0) 05/26/20 06:00 RBC 4.06 X10^6/uL (4.7-6.0) L 05/26/20 06:00 Hgb 12.4 g/dL (13.5-18.0) L 05/26/20 06:00 Hct 36.9 % (42.0-54.0) L 05/26/20 06:00 MCV 90.8 fL (80.0-100.0) 05/26/20 06:00 MCH 30.5 pg (27.0-34.0) 05/26/20 06:00 MCHC 33.6 g/dL (33.0-35.0) 05/26/20 06:00 RDW 14.2 % (11.6-16.5) 05/26/20 06:00 Plt Count 142 X10^3/uL (150.0-450.0) L 05/26/20 06:00 MPV 9.1 fL (7.4-11.0) 05/26/20 06:00 Neut % (Auto) 68.7 % (42.0-75.0) 05/26/20 06:00 Lymph % (Auto) 20.0 % (21.0-51.0) L 05/26/20 06:00 [place] % (Auto) 8.3 % (0.0-13.0) 05/26/20 06:00 Eos % (Auto) 2.6 % (0.9-2.9) 05/26/20 06:00 Baso % (Auto) 0.4 % (0.2-1.0) 05/26/20 06:00 Neut # (Auto) 4.6 x10^3/uL (2.2-4.8) 05/26/20 06:00 Lymph # (Auto) 1.3 X10^3/uL (1.3-2.9) 05/26/20 06:00 [place] # (Auto) 0.6 x10^3/uL (0.3-0.8) 05/26/20 06:00 Eos # (Auto) 0.2 x10^3/uL (0.0-0.2) 05/26/20 06:00 Baso # (Auto) 0.0 X10^3/uL (0.0-0.1) 05/26/20 06:00 Absolute Nucleated RBC 0.0 /100WBC 05/26/20 06:00 Sodium 140 mmol/L (136-145) 05/26/20 06:00 Corrected Sodium TNP 05/26/20 06:00 Potassium 4.0 mmol/L (3.5-5.1) 05/26/20 06:00 Chloride 107 mmol/L (98-107) 05/26/20 06:00 Carbon Dioxide 27.2 mmol/L (21-32) 05/26/20 06:00 BUN 8 mg/dL (7-18) 05/26/20 06:00 Creatinine 0.71 mg/dL (0.70-1.30) 05/26/20 06:00 Est GFR (MDRD) Af Amer > 60 (>60) 05/26/20 06:00 Est GFR (MDRD) Non-Af > 60 (>60) 05/26/20 06:00 Glucose 103 mg/dL (65-99) H 05/26/20 06:00 Calcium 8.3 mg/dL (8.5-10.1) L 05/26/20 06:00 Corrected Calcium 9.1 mg/dL (8.5-10.1) 05/26/20 06:00 Magnesium 2.0 mg/dL (1.7-2.9) 05/25/20 05:40 Total Bilirubin 0.80 mg/dL (0.2-1.0) 05/26/20 06:00 AST 15 Units/L (15-37) 05/26/20 06:00 ALT 17 Units/L (12-78) 05/26/20 06:00 Alkaline Phosphatase 54 Units/L (46-116) 05/26/20 06:00 Total Protein 6.0 g/dL (6.4-8.2) L 05/26/20 06:00 Albumin 3.0 g/dL (3.4-5.0) L 05/26/20 06:00 Globulin 3.0 g/dL (2.5-4.5) 05/26/20 06:00 Albumin/Globulin Ratio 1.0 Ratio (1.1-2.1) L 05/26/20 06:00 Amylase 48 Units/L (25-115) 05/25/20 05:40 Lipase 118 Units/L (73-393) 05/25/20 05:40 Specimen Type Clean catch urine 05/25/20 01:40 Urine Color Yellow (YELLOW) 05/25/20 01:40 Urine Appearance Clear (CLEAR) 05/25/20 01:40 Urine pH 5.0 (5.0 - 8.0) 05/25/20 01:40 Ur Specific [place] 1.030 (1.000-1.030) 05/25/20 01:40 Urine Protein 1+ (NEGATIVE) 05/25/20 01:40 Urine Glucose (UA) Negative (NEGATIVE) 05/25/20 01:40 Urine Ketones 2+ (NEGATIVE) 05/25/20 01:40 Urine Occult Blood Negative (NEGATIVE) 05/25/20 01:40 Urine Nitrite Negative (NEGATIVE) 05/25/20 01:40 Urine Bilirubin Negative (NEGATIVE) 05/25/20 01:40 Urine Urobilinogen Normal (NORMAL) 05/25/20 01:40 Ur Leukocyte Esterase Negative (NEGATIVE) 05/25/20 01:40 Urine RBC None seen /HPF (0-3) 05/25/20 01:40 Urine WBC None seen /HPF (0-5) 05/25/20 01:40 Ur Squamous Epith Cells Rare /HPF (NEGATIVE) 05/25/20 01:40 Urine Bacteria Trace /HPF (NEGATIVE) 05/25/20 01:40 Ur Culture Indicated? No/not indicated 05/25/20 01:40 SARS-CoV-2 (PCR) Negative (NEGATIVE) 05/24/20 22:05 Reason For Visit: ACUTE DEHYDRATION, ABDOMINAL PAIN, DIARRHEA, Discharge Diagnosis All Active Problems (Updated 05/25/20 @ 10:50 by Blanche Benavidez) Chronic, continuous use of opioids (Acute) Anxiety (Acute) Dementia (Acute) Hypothyroidism (Acute) HTN (hypertension) (Acute) CAD (coronary artery disease) (Acute) Tachycardia (Acute) Altered mental state (Acute) Tourettes syndrome (Chronic) Atrial fibrillation (Acute) Leukocytosis (Acute) Pneumonia (Acute) Chest pain (Acute) Right distal ureteral calculus (Acute) Hydroureteronephrosis (Acute) Hyperglycemia (Acute) Colon, diverticulosis (Acute) Left inguinal hernia (Acute) Constipation (Acute) Acute dehydration (Acute) Enteritis (Acute) Bronchitis (Acute) Diarrhea (Acute) Weakness generalized (Acute) Plan of Treatment: Continue with present treatment and follow up plan. Pt is to keep follow up appointment as instructed and take medications as ordered. Discharge Medications Discharge Medications: No Known Drug Allergies Allergy (Verified 05/24/20 19:14) CONTINUE taking the following medications Colace Clear 50 mg PO BID PRN 05/24/20 [History] donepezil 10 mg PO DAILY 05/24/20 [History] megestrol 40 mg PO BID 05/24/20 [History] New Prescriptions ciprofloxacin HCl 500 mg PO BID 5 Days #10 tab 05/26/20 [Rx] metronidazole 500 mg PO TID 5 Days #15 tab 05/26/20 [Rx] Discharge Plan Discharge Plan Patient Disposition: 01 HOME, SELF-CARE Condition: Stable Health Concerns: Post Hospitalization: new medications and changes needed to prevent readmission or further decline. Pt educated and given instructions on all concerns. Care Plan Goals: Problem: Fluid Volume Deficit Goal: Maintain/Improved Adequate hydration. Instructions: Follow provided instructions. Follow up with primary physician as directed. Contact primary care physician or report to the closest Emergency Room if condition worsens. Plan of Treatment: Continue with present treatment and follow up plan. Pt is to keep follow up appointment as instructed and take medications as ordered. Prescription drug monitoring program results: PDMP reviewed and no concerns identified Prescriptions: New metronidazole 500 mg Tablet 500 mg PO TID 5 Days Qty: 15 RF: 0 ciprofloxacin HCl 500 mg tablet 500 mg PO BID 5 Days Qty: 10 RF: 0 Continued carvedilol 6.25 mg tablet 6.25 mg PO BID RF: 0 aspirin 325 mg Tablet 325 mg PO DAILY RF: 0 hydrocodone-acetaminophen 10-325 mg tablet 1 tab PO QID PRN (Reason: Pain) RF: 0 levothyroxine 75 mcg tablet 75 mcg PO DAILY RF: 0 simvastatin 20 mg tablet 20 mg PO HS RF: 0 omeprazole 20 mg capsule,delayed release(DR/EC) 20 mg PO DAILY RF: 0 diazepam 10 mg tablet 10 mg PO TID RF: 0 donepezil 10 mg tablet 10 mg PO DAILY RF: 0 megestrol 40 mg tablet 40 mg PO BID RF: 0 Colace Clear 50 mg capsule 50 mg PO BID PRNRF: 0 Orders to Discharge Patient Discharge Orders: Discharge (Routine); Ordered 05/26/20 Ordered By: Blanche Benavidez Follow ups/Referrals Follow ups/Referrals: TIKI MCDONNELL [Primary Care Provider] - 1 WEEK (Call office on Friday and schedule a follow up.) Instructions Instructions: Fall Prevention in the Home, Adult, [id number], Diarrhea, Adult, Hypertension, [id number], Rehydration, Elderly, Dehydration, Elderly, [id number] Stand Alone Forms: Precautions for COVID19, Patient Portal, Social Distancing
== END 2020-05-26 11:00 | disposition home or self-care (01) ==
LOC: MED/SURG 19:00 → ER 19:00 → MED/SURG 05-25 01:26
PROVIDERS: ADMIT Internal Medicine; ATTEND Internal Medicine
DX: F03.90 Unspecified dementia, unspecified severity, without behavioral disturbance, psychotic disturbance, mood disturbance, and anxiety; R53.1 Weakness; F11.90 Opioid use, unspecified, uncomplicated; Z79.899 Other long term (current) drug therapy; Z20.828 Contact with and (suspected) exposure to other viral communicable diseases; I10 Essential (primary) hypertension; A09 Infectious gastroenteritis and colitis, unspecified; K57.30 Diverticulosis of large intestine without perforation or abscess without bleeding; E86.0 Dehydration; K44.9 Diaphragmatic hernia without obstruction or gangrene; I25.10 Atherosclerotic heart disease of native coronary artery without angina pectoris; F41.8 Other specified anxiety disorders; E03.8 Other specified hypothyroidism